=== PATIENT | male | born 1980 | race Hispanic/Latino ===

== ENCOUNTER 2024-05-17 08:41 | Emergency (ER) | payer OTHER, BC ==
[~2024-05-17] VITALS: Ht 180.3 cm; Wt 104.3 kg
[2024-05-17] MEDS: LISINOPRIL 10 MG TABLET ONE (09:28)
[2024-05-17] MEDS: LISINOPRIL 10 MG TABLET PO ONE (09:30)
[2024-05-17] MEDS: hydrALAZine 20MG/ML VIAL IV ONE (11:09)
[2024-05-17] MEDS: dilTIAZem 25MG INJ IVP ONE (12:21)
[2024-05-17 12:50] VITALS: TEMP 98.8
[2024-05-17 13:10] VITALS: BP 160/71; PULSE 71; RESP 18; O2SAT 97
== END 2024-05-17 13:34 | disposition home or self-care (01) ==
LOC: EDH 08:41
DX: S69.92XA Unspecified injury of left wrist, hand and finger(s), initial encounter (principal); I10 Essential (primary) hypertension; X50.0XXA Overexertion from strenuous movement or load, initial encounter; Y93.89 Activity, other specified; Y92.89 Other specified places as the place of occurrence of the external cause; Y99.8 Other external cause status
CPT/HCPCS: 99285; 96374; 96375; 73130; J0360; J3490